=== PATIENT | female | born 1950 | race Caucasian/White ===

== ENCOUNTER → 2024-01-31 07:52 | Outpatient (REF) | payer MEDICARE, SELFPAY | LOC: HWWDC 07:52 | PROVIDERS: ATTENDING PHYSICIAN Family Medicine | DX: Z12.31 Encounter for screening mammogram for malignant neoplasm of breast (principal) | CPT/HCPCS: 77063; 77067 ==

== ENCOUNTER → 2025-02-04 08:16 | Outpatient (REF) | payer OTHER, SELFPAY | LOC: RAD 08:16 | PROVIDERS: ATTENDING PHYSICIAN Nurse Practitioner Family; FAMILY PHYSICIAN Family Medicine | DX: R91.8 Other nonspecific abnormal finding of lung field (principal) | CPT/HCPCS: 71250 ==

== ENCOUNTER → 2025-03-11 08:46 | Outpatient (REF) | payer MEDICARE, SELFPAY | LOC: RAD 08:46 | PROVIDERS: ATTENDING PHYSICIAN Family Medicine | DX: R10.9 Unspecified abdominal pain (principal); K46.0 Unspecified abdominal hernia with obstruction, without gangrene; Z93.3 Colostomy status | CPT/HCPCS: 74177; Q9967 ==